=== PATIENT | male | born 1975 | race Caucasian/White ===

== ENCOUNTER 2018-04-06 18:56 | Emergency (ER) | payer OTHER ==
[~2018-04-06] VITALS: Ht 177.8 cm; Wt 112.7 kg
[2018-04-06 18:58] VITALS: BP 153/94
== END 2018-04-06 19:53 | disposition home or self-care (01) ==
LOC: ED 18:56
DX: H00.012 Hordeolum externum right lower eyelid (principal); I10 Essential (primary) hypertension

== ENCOUNTER 2018-12-17 17:05 | Emergency (ER) | payer OTHER ==
[~2018-12-17] VITALS: Ht 177.8 cm; Wt 106.6 kg
[2018-12-17 17:10] VITALS: Ht 177.8 cm; Wt 106.6 kg
[2018-12-17 18:32] VITALS: BP 123/79
== END 2018-12-17 18:38 | disposition home or self-care (01) ==
LOC: ED 17:05
DX: L02.31 Cutaneous abscess of buttock (principal)

== ENCOUNTER 2018-12-29 21:18 | Emergency (ER) | payer OTHER ==
[~2018-12-29] VITALS: Ht 177.8 cm; Wt 107.5 kg
[2018-12-29 21:46] VITALS: Ht 177.8 cm; Wt 107.5 kg
[2018-12-30 01:57] VITALS: BP 144/68
== END 2018-12-30 01:57 | disposition home or self-care (01) ==
LOC: ED 21:18
DX: L02.31 Cutaneous abscess of buttock (principal)
CPT/HCPCS: J2001

== ENCOUNTER 2019-01-01 04:25 | Emergency (ER) | payer OTHER ==
[~2019-01-01] VITALS: Ht 177.8 cm; Wt 106.6 kg
[2019-01-01 04:29] VITALS: Ht 177.8 cm; Wt 106.6 kg
[2019-01-01 05:10] VITALS: BP 143/74
== END 2019-01-01 05:10 | disposition home or self-care (01) ==
LOC: ED 04:25
DX: K61.1 Rectal abscess (principal)

== ENCOUNTER 2020-08-06 16:14 | Emergency (ER) | payer OTHER ==
[~2020-08-06] VITALS: Ht 177.8 cm; Wt 107.0 kg
[2020-08-06 16:24] VITALS: Ht 177.8 cm; Wt 107.0 kg
[2020-08-06 17:45] LABS: CARBON DIOXIDE 28.8 mmol/L (21-32); CREATININE SERUM 1.4 mg/dL (0.7-1.3); POTASSIUM SERUM 4.1 mmol/L (3.5-5.1)
[2020-08-06 17:50] LABS: ALBUMIN 3.9 g/dL (3.4-5.0); BILIRUBIN TOTAL 0.3 mg/dL (0.20-1.00); TOTAL PROTEIN, SERUM 7.7 g/dL (6.4-8.2)
[2020-08-06 17:55] LABS: BASOPHIL % 0.4 % (0.2-1.5); PLATELET COUNT 309 x10^3mcL (152-348)
[2020-08-06 17:58] LABS: RED CELL DISTRIBUTION WIDTH 14.7 % (12.1-16.2)
[2020-08-06 21:28] VITALS: BP 147/76
== END 2020-08-06 21:28 | disposition home or self-care (01) ==
LOC: ED 16:14
DX: R07.89 Other chest pain (principal); Z20.828 Contact with and (suspected) exposure to other viral communicable diseases